=== PATIENT | male | born 1980 | race Caucasian/White ===

== ENCOUNTER 2018-02-05 09:42 | Day surgery (SDC) | payer BC ==
[2018-02-05] MEDS: OXYMETAZOLINE HCL 0.05% 15ML NAS ONE ×5 (10:10→11:40)
[2018-02-05] MEDS ORDERED: Ringers Lactate 1,000 ML IV ONE ×2 (10:10→12:46)
[2018-02-05] MEDS ORDERED: PROPOFOL 200 MG/20 ML VIAL IV ONE (10:50)
[2018-02-05] MEDS ORDERED: ROCURONIUM 50 MG/5 ML VIAL IV ONE (10:50)
[2018-02-05] MEDS ORDERED: LIDOCAINE 2% MPF 5 ML VIAL ONE (10:51)
[2018-02-05] MEDS ORDERED: GLYCOPYRROLATE 0.2 MG/ML SYR ONE (10:51)
[2018-02-05] MEDS ORDERED: FENTANYL CITR 250 MCG/5 ML ONE (10:51)
[2018-02-05] MEDS ORDERED: OXYMETAZOLINE HCL 0.05% 15ML NAS ONE (10:51)
[2018-02-05] MEDS ORDERED: LIDOCAINE 1% W/EPI 1:100,000 MDV 50 ML VIAL ONE (10:51)
[2018-02-05] MEDS ORDERED: MIDAZOLAM HCL 2 MG/2 ML INJ ONE (10:51)
[2018-02-05] MEDS ORDERED: NA CHLORIDE 0.9% 500 ML ONE (11:26)
[2018-02-05] MEDS ORDERED: ONDANSETRON 4 MG/2 ML VIAL ONE (12:03)
[2018-02-05] MEDS ORDERED: Phenylephrine HCl 10 MG/ML 1 ML VIAL ONE (12:13)
--- NOTE | 2018-02-05 13:03 | P.BOP ---
Preoperative diagnosis: septal deviation, turb hypertrophy, rhinitis medicametosa Postoperative diagnosis: same Primary procedure: septoplasty Secondary procedure: ITR Other procedure(s): none Supervisor Nurse: NONE,NONE Estimated blood loss: 20ml Specimen: none Findings: prior septal fracture Anesthesia: General Complications: None Implants: Álvarez splints to B NC Transferred to: Recovery Room Condition: Good
[2018-02-05] MEDS ORDERED: KETOROLAC TROM 60 MG/2 ML INJ IM ONE (13:34)
[2018-02-05] MEDS ORDERED: MEPERIDINE HCL 25 MG/0.5 ML ONE ×2 (13:51→14:38)
[2018-02-05] MEDS ORDERED: LABETALOL HCL 100 MG/20 ML ONE (13:51)
[2018-02-05] MEDS ORDERED: HYDRALAZINE HCL 20 MG/ML VIAL ONE (14:21)
--- NOTE | 2018-02-10 13:51 | OP ---
Date of Procedure: 02/05/2018 Surgeon: Paola Valle MD Preoperative Diagnoses: Septal deviation, turbinate hypertrophy, nasal obstruction, chronic rhinitis with rhinitis medicamentosa. Postoperative Diagnoses: Septal deviation, turbinate hypertrophy, nasal obstruction, chronic rhiniti s with rhinitis medicamentosa. Procedure: Septoplasty with inferior turbinate reduction, submucosal resection and down fracture. Description Of Procedure: The patient was brought to the operating room. He was placed under genera l anesthesia via oral endotracheal tube. The head of bed was turned 90 degrees. The nasal hairs wer e trimmed with scissors with aid of a nasal speculum and the septum is injected with 1% lidocaine wit h epinephrine. The nasal cavity was packed with Afrin-soaked pledgets. The patient's face is draped in a standard fashion for nasal surgery. After removal of the pledgets, a left hemitransfixion inci carlton is made through the mucosa and bilateral septal flaps are elevated. During elevation there was notation of prior fracture of the septal cartilage. The mucosa is carefully elevated over this area. There is a prominent left inferior septal spur and mucosa was carefully elevated over this area wit h a mild laceration ensuing. The fractured and dislocated portion of the septum is carefully excised leaving an adequate L-strut. The bony deviation of the left spur is carefully removed using a chise l and mallet as well as a Chele rongeur. The deviated portion of the more posterior septum is likew ise excised using heavy scissors and Chele rongeur. After adequate removal of the deviated portion, the septum is noted to be much more toward midline. Attention was turned to the inferior turbinates . The head of the turbinates is injected with 1% lidocaine. A small stab incision is made and a Cot tle elevator is used to elevate the submucosal pocket within the bilateral inferior turbinates. The microdebrider fitted with inferior turbinate blade is used to remove excess submucosal soft tissue wi th a moderate amount of bleeding noted from the turbinate incisions. The nose was packed with Afrin- soaked pledgets for several minutes to aid in hemostasis. After removal of the pledgets, a Polo e levator is used to outfracture the inferior turbinates in order to improve the nasal airway. The ple dgets are all removed from the nose and the count was confirmed. The hemitransfixion incision is karena sed in a simple fashion using a plain gut suture. A gut suture on a small Mike needle was used for placement of mattressing sutures to approximate the septal flaps and there was no clinical evidence o f early hematoma formation. Due to patient's history of rhinitis medicamentosa due to Radhames-Synephrine , the decision was made to place Álvarez splints to aid in withdrawals from topical decongestants durin g the early healing. The Álvarez airway splints are not modified and replaced in the bilateral nasal c avity and secured to the septum using a single 4-0 nylon suture. The nasopharynx, oropharynx, I thor oughly suctioned and the patient was returned to care of anesthesia for awakening and extubation in t operating room, which proceeded without difficulty. Complications: None. Specimens: None. Disposition: The patient will follow up with Dr. Valle in 1 to 2 weeks for removal of the nasal sp lints. NICOLLE/LUDWIN Voice ID: [id number] Report ID: [id number]
== END 2018-02-05 15:05 | disposition home or self-care (01) ==
LOC: OR 09:42
PROVIDERS: ATTEND Otolaryngology
PROC: 09BM8ZZ Excision of Nasal Septum, Via Natural or Artificial Opening Endoscopic (ICD-10-PCS; principal; 2018-02-05 11:00)
DX: J34.2 Deviated nasal septum (principal); J34.3 Hypertrophy of nasal turbinates; J31.0 Chronic rhinitis; J34.89 Other specified disorders of nose and nasal sinuses; G47.33 Obstructive sleep apnea (adult) (pediatric)
CPT/HCPCS: J0360; J1885; J2175; J2250; J2370; J2405; J2704; J3010